=== PATIENT | male | born 1960 | race Caucasian/White ===

== ENCOUNTER 2018-02-23 21:13 | Emergency (ER) | payer BC, SELFPAY ==
--- NOTE | 2018-02-23 21:19 | DI.CT_ITS ---
SYMPTOMS/DIAGNOSIS: CONFUSION, DIZZY, ALTERED MENTAL STATUS, HYPOXIC CRANIAL CT: A noncontrast cranial CT was performed. The ventricular system is normal in appearance. There is no evidence of an intracranial mass lesion. There is no evidence of a subdural or epidural hematoma. No focal areas of decreased attenuation are seen. CONCLUSION: Normal noncontrast cranial CT. CT ANGIOGRAPHY, CHEST: CT angiography was performed with multi slice acquisition and multi planar and 3D reconstruction. CT angiography of the chest was performed with intravenous infusion of 100 cc of Omnipaque 350. Lungs are generally clear except for a small partially calcified left lower lobe nodule. The tracheobronchial tree appears intact. No pleural effusion. Minimal dependent atelectasis noted. No evidence of pulmonary embolic disease or thoracic aortic aneurysm or dissection. Images obtained through the upper abdomen show unremarkable appearance of visualized portions of the liver and spleen. CONCLUSION: No evidence of acute process. CT ANGIOGRAPHY, CERVICOCRANIAL: CT angiography was performed with multi slice acquisition and multi planar and 3D reconstruction. CT angiography of the neck and head was performed following CTA of the chest. No cervical mass or adenopathy seen. Common, internal and external carotid arteries are unremarkable in appearance bilaterally with no evidence of significant stenosis, aneurysm or dissection. Intracranial extent of the internal carotid arteries is unremarkable. No evidence of aneurysm, stenosis or dissection of middle or anterior cerebral arteries or major branches. No evidence of aneurysm, stenosis or dissection of vertebral, basilar or posterior cerebral arteries bilaterally. Tracheolaryngeal structures appear intact. CONCLUSION: Negative craniocervical CTA.
[2018-02-23] MEDS: Normal Saline 1,000 ML 1000 ML IV ×2 (21:32→23:03)
[2018-02-23 21:33] LABS: Abs Immature Grans 0.01 k/cumm (0.0-0.09); HCT 38.7 % (40.0-50.0); HGB 13.7 g/dL (13.5-17.5); Mean Corp. HGB Concentration 35.4 g/dL (32.0-36.0); Mean Corpuscular Hemoglobin 31.6 pg (27.0-33.0); Mean Corpuscular Volume 89.4 fL (80-95); Mean Platelet Volume 9.5 fL (8.0-11.0); Platelet Count 222 x1000/uL (130-400); RBC 4.33 m/cumm (4.50-6.00); RBC Distribution Width 11.9 % (11.8-14.1); White Blood Cell Count 9.53 k/cumm (4.4-10.8)
--- NOTE | 2018-02-23 21:33 | NUR.NOTE ---
states that approximately 1999 pt stated that he lost all energy and that his legs tingled and was short of breath at which point pt called 911. pt has consumed 5-7 whisky drinks. pt consumes whisky on a daily basis. states that symptoms have gradually progressed since onset
[2018-02-23 21:34] LABS: BE (Venous) -2.1 mmol/L (-3-3); HCO3 (Venous) 24 mmol/L (22-28); O2 Sat (Venous) 91 % (70-80); TCO2 (Venous) 21 mmol/L (22-29); pCO2 (Venous) 43 mm/Hg (34-47); pH (Venous) 7.35 (7.32-7.43); pO2 (Venous) 64 mm/Hg (28-44)
[2018-02-23 21:37] VITALS: BP 108/84; PULSE 88; RESP 15; TEMP 36.6; O2SAT 95
[2018-02-23 21:46] LABS: Ammonia 24 umol/L (11-32)
[2018-02-23 22:07] LABS: Absolute Lymphocyte Count 5.34 k/cumm (1.2-3.4); Absolute Monocyte Count 0.57 k/cumm (0.11-0.7); Absolute Neutrophil Count 3.53 k/cumm (1.2-6.7); Atypical Lymphocytes % 7; Diff Comment Manual Differential; RBC Morphology Normal
[2018-02-23 22:10] LABS: ALT 35 U/L (12-78); AST 16 U/L (15-37); Albumin 3.6 g/dL (3.4-5.0); Alkaline Phosphatase 35 U/L (46-116); Anion Gap 11.8 mmol/L (3-11); BUN 17 mg/dL (7-18); Bilirubin, Total 0.4 mg/dL (0.2-1.0); CO2 24.2 mmol/L (21.0-32.0); CREATININE 1.12 mg/dL (0.70-1.30); Calcium 8.2 mg/dL (8.5-10.1); Chloride 98 mmol/L (98-107); ETHANOL BLOOD 38.5 mg/dL (<3); Glucose 241 mg/dL (70-100); Sodium 134 mmol/L (136-145)
[2018-02-23 22:11] LABS: Troponin I < 0.02 ng/mL (0.00-0.06)
--- NOTE | 2018-02-23 22:30 | W.ED.GENAD ---
Discharge Plan Disposition Patient Disposition: HOME Condition: Good Discharge Details Chief Complaint: Dizzy/Sync Clinical Impression: Fatigue, Acute hypokalemia, Alcohol intoxication Reason For Visit: DONNA Primary Care Provider: Duc Forrest ED Provider: Claudio Bernstein Home Meds and New Rx's Prescriptions: No Action gemfibrozil 600 MG tablet 600 mg PO DAILY Qty: 90 RF: 4 lisinopril-hydrochlorothiazide 1 EACH tablet 1 ea PO QAM Qty: 90 RF: 4 Discharge Instructions Instructions: Hypokalemia (ED), Fatigue (ED) Additional Instructions: Please eat a diet heavy in bananas. If you notice any worsening of your symptoms, or any new symptoms such as vomiting, diarrhea, fever, chills, shortness of breath, chest pain, numbness, weakness, or fainting , please return immediately to the emergency department for reevaluation. Please follow up with your primary care provider as soon as possible for reassessment and reevaluation. As always, it was a pleasure participating in your medical care today. Referrals: Duc Forrest, [Primary Care Provider] - Medical Decision Making This is a 57-year-old male who presents for subjective dizziness, subjective tingling throughout, mild headache and mild shortness of breath. Patient is slightly poor historian. States that he drank 5-6 whiskeys earlier this evening, and then felt notably tired and had to lay down after this. Per family this is atypical for him. His dizziness and shortness of breath worsen, 9 1 was called and he was brought to the ER for further evaluation. Currently he does appear notably fatigued however he responds to all questions and follows all commands without difficulty. He demonstrates no focal neurologic deficits. He denies any significant chest pain, his neurologic exam demonstrates an NIH stroke scale of 0. He shows no nuchal rigidity suggestive of meningitis or encephalitis. The patient does demonstrate mild hypoxemia for his vital signs, but he also shows some episodes of apnea. Lung sounds demonstrate no significant abnormalities I can appreciate. Because of the patient being a poor historian, we will get a CT scan of his chest, evaluate his head and neck for any type of stroke, rehydrate and reevaluate. Patient's alcohol is actually slightly elevated and not extremely elevated at 38.5, so severe intoxication is unlikely. Family history and personal history from the patient deny any other ingested substances like antifreeze, or rubbing alcohol. The patient's pH is normal, and he has no anion gap. I doubt toxic alcohol. We are unable to perform osmolality testing here, or order toxic alcohols. Patient's potassium is low at 3.0. But the remainder of his labs are relatively benign. Troponin is negative. EKG is benign. 12:44 AM Patient's laboratory workup demonstrates no significant leukocytosis, no bandemia, electrolytes demonstrate a low potassium, but no other significant severe abnormalities. Calcium is slightly low at 8.2. Urine drug screen is negative for anything except for cannabis. After rehydration and potassium replacement the patient is feeling much better. The extensive CT workup of his head neck and chest are all negative for any acute process except for mild atelectasis. Patient is feeling much better, dizziness is nearly resolved. We did get him up and ambulate him around the emergency department and he showed no signs of tachycardia, hypoxemia, or ataxia. With notable improvement in both his clinical symptomatology, and a relatively benign workup we feel that the patient is stable. From a mental status perspective the patient no longer appears sleepy, he is extremely conversant, and shows no signs of obtundation, lethargy, or confusion. I feel the symptoms may have been a combination of too much alcohol use, potential contaminant cannabis use, with fatigue and mild dehydration. With a notable clinical improvement, a relatively benign workup, and repletion of his potassium I feel he can be safely discharged home. We discussed red flags which to return the patient understands. I have extensively reviewed the treatment plan and discharge instructions with the patient and their family. I have addressed all patient concerns at this time. The patient and family was made aware of what symptoms to monitor for that would warrant a return to the emergency department. Discussed the plan with the patient and family, they demonstrate verbal understanding and agreement with our assessment and plan at this time. EKG 21: 46 Rate 86, sinus rhythm, intervals normal, no significant ST elevation or depression, no Q waves, no T wave inversions. Mild artifact in V4 and V5. Findings: Pulmonary arteries: Unremarkable. No obvious pulmonary emboli. Aorta: Unremarkable. No aortic aneurysm. No aortic dissection. Lungs: Small amount of dependent atelectasis. Pleural space: Unremarkable. No pneumothorax. No pleural effusion. Heart: Unremarkable. No pericardial effusion. No obvious heart strain. Lymph nodes: Unremarkable. No enlarged lymph nodes. Bones/joints: Unremarkable. No acute fracture. Soft tissues: Unremarkable. Impression: Small amount of dependent atelectasis. Findings: Brain: Typical for age. No hemorrhage. No evidence of acute infarct. No mass. Ventricles: No ventriculomegaly. Bones/joints: Unremarkable. Sinuses: No sinus fluid. Mastoid air cells: Unremarkable. Soft tissues: Unremarkable. Impression: No acute intracranial abnormality. Dictated and Authenticated by: Bravo Arnold MD. FINDINGS: Right internal carotid artery: Unremarkable. Intracranial segment is patent with no significant stenosis. No aneurysm. Right anterior cerebral artery: Unremarkable. No occlusion or significant stenosis. No aneurysm. Right middle cerebral artery: Unremarkable. No occlusion or significant stenosis. No aneurysm. Right posterior cerebral artery: Unremarkable. No occlusion or significant stenosis. No aneurysm. Right vertebral artery: Unremarkable. No occlusion or significant stenosis. No aneurysm. Left internal carotid artery: Unremarkable. Intracranial segment is patent with no significant stenosis. No aneurysm. Left anterior cerebral artery: Unremarkable. No occlusion or significant stenosis. No aneurysm. Left middle cerebral artery: Unremarkable. No occlusion or significant stenosis. No aneurysm. Left posterior cerebral artery: Unremarkable. No occlusion or significant stenosis. No aneurysm. Left vertebral artery: Unremarkable. No occlusion or significant stenosis. No aneurysm. Basilar artery: Unremarkable. No occlusion or significant stenosis. No aneurysm. IMPRESSION: No acute findings. EXAM: CT Angiography Neck With Contrast COMPARISON: CT Private^HEAD ROUTINE (Adult) 02/23/2018 10:03 PM FINDINGS: VASCULATURE: Right common carotid artery: Unremarkable. No significant stenosis. No dissection or occlusion. Right internal carotid artery: Very tortuous. Extracranial segment is patent with no significant stenosis. No dissection or occlusion. Right external carotid artery: No occlusion or significant stenosis. Right vertebral artery: Unremarkable. No significant stenosis. No dissection or occlusion. Left common carotid artery: Unremarkable. No significant stenosis. No dissection or occlusion. Left internal carotid artery: Very tortuous. Extracranial segment is patent with no significant stenosis. No dissection or occlusion. Left external carotid artery: No occlusion or significant stenosis. Left vertebral artery: Unremarkable. No significant stenosis. No dissection or occlusion. NECK: Bones/joints: Unremarkable. Soft tissues: No significant soft tissue swelling. IMPRESSION: No acute findings. No evidence of stenosis. COMMENT: Reference per NASCET criteria for degree of stenosis: Mild: <50% stenosis. Moderate: 50-69% stenosis. Severe: 70-94% stenosis. Near occlusion: 95-99% stenosis. Dictated and Authenticated by: Bravo Arnold MD. HPI General Date/Time Provider Initiated Documentation: 02/23/18 21:18. HPI Narrative: This is a 57-year-old male with past medical history of hypertension, high cholesterol, and chronic regular alcoholism who presents today for evaluation of dizziness, subjective systemic tingling, shortness of breath and fatigue. Family states that patient regularly drinks 2-3 beers per day, however tonight while he was at a [employer] in addition to his regular alcohol consumption he drinks 5-6 whiskeys. The patient and family deny that he drank or took any other illicit substance. After drinking the additional whiskey the patient began feeling slightly dizzy, lightheaded, developed a mild headache, and had some mild shortness of breath as well. He denies having symptoms like this in the past. Family is at bedside states that he never gets like this when he regularly drinks alcohol. They feel that his symptoms are definitely not his norm. Patient denies any modifying or relieving factors. He denies any other associated symptoms of weakness, vision changes, chest pain, arm pain, neck pain or shoulder pain. He denies any falls or traumas. Denies any other complaints at this time. No recent surgeries. No pertinent family history. Related Data Home Medications Medication Instructions Recorded Confirmed gemfibrozil 600 mg PO DAILY #90 tab 09/09/17 lisinopril-hydrochlorothiazide 1 ea PO QAM #90 tab 09/09/17 Previous Rx's Medication Instructions Recorded gemfibrozil 600 mg PO DAILY #90 tab 09/09/17 lisinopril-hydrochlorothiazide 1 ea PO QAM #90 tab 09/09/17 Allergies Allergy/AdvReac Type Severity Reaction Status Date / Time No Known Drug Allergies Allergy Unverified 09/10/17 08:34 General Stated Complaint: Dizzy/Sync BAILEY: 3 Review of Systems Review of Systems All systems reviewed & are unremarkable except as noted in HPI and below PFSH Surgical History Appendectomy Colonoscopy - MAC Repair of inguinal hernia Family History Mother No problems noted. Father No problems noted. Sister No problems noted. Son No problems noted. Social History Smoking/Tobacco Use Status: Never Exam Narrative Exam Narrative: 1.Const: Well-nourished, Well-developed, appearing stated age 2.Eyes: PERRL, no conjunctival injection, and symmetrical lids. Pupils are slightly sluggish but otherwise dilated. Patient demonstrates good movement of cervical neck. There is no nuchal rigidity, no nuchal tenderness. Patient is able to flex the neck without any difficulty or significant pain. Negative Kernig's and Brudzinski sign. 3.ENT: Atraumatic external nose and ears. Moist MM. Neck: Symmetric, trachea midline, No thyromegaly. 4.CVS: +S1/S2, No murmurs or gallops. Peripheral pulses 2+ and equal in all extremities. Brisk capillary refill in all extremities. 5.RESP: Unlabored respiratory effort. Clear to auscultation bilaterally. No wheezes rales or rhonchi 6.GI: Soft, Nontender/Nondistended, No hepatosplenomegaly. No guarding or rebound. 7.MSK: Normocephalic/Atraumatic, Extremities w/o deformity or ttp No cyanosis or clubbing, Normal movement of all extremities 8.Skin: Warm, Dry. No rashes or lesions. 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 Sensation grossly intact, no focal neurologic deficits. Cerebellar function testing is normal. The patient demonstrates a normal hints exam with no findings concerning for a central event. No vertical nystagmus. The head impulse test is negative for any significant central abnormality. Normal test of skew. No suggestion of a central cerebellar event. CN 2-12 tested and intact, patient is able to hold bilateral arms up for 5 seconds and there is no pronator drift, patient also holds legs up for 10 seconds bilaterally without any drop, sensation intact to light touch in hands and feet bilaterally. Cerebellar exam normal as tested by [id number], [id number], rapid alternating movements, fine finger movements. Visual montelongo intact peripherally. Normal speech pattern and verbal understanding. NIH stroke score of 0. Patient does appear notably fatigued, however he responds to all commands quickly without difficulty. He shows no neurologic deficits. 10.Psych: (AAO) x3. Decreased energy, but no confusion. Course Vital Signs Temperature 36.6 C 02/23/18 21:37 Pulse 88 02/23/18 21:37 Respiratory Rate 15 02/23/18 21:37 Blood Pressure 108/84 02/23/18 21:37 Pulse Oximetry 95 02/23/18 21:37 Temperature 36.6 C 02/23/18 21:37 Temperature Source Skin 02/23/18 21:37 Pulse 88 02/23/18 21:37 Respiratory Rate 15 02/23/18 21:37 Blood Pressure 108/84 02/23/18 21:37 Blood Pressure Position Supine 02/23/18 21:37 Pulse Oximetry 95 02/23/18 21:37 Oxygen Delivery Method Nasal Cannula 02/23/18 21:37 Oxygen Flow Rate 5 02/23/18 21:37 Pain Level 0 02/23/18 21:37 Comment 02/23/18 21:37 Lab/Test Results Lab/Test Results: Laboratory Tests Range/Units 02/23/18 02/23/18 02/23/18 21:19 21:19 21:19 WBC (4.4-10.8) k/cumm RBC (4.50-6.00) m/cumm Hgb (13.5-17.5) g/dL Hct (40.0-50.0) % MCV (80-95) fL MCH (27.0-33.0) pg MCHC (32.0-36.0) g/dL RDW (11.8-14.1) % Plt Count (130-400) x1000/uL MPV (8.0-11.0) fL Immature Gran % Neutrophils % Lymphocytes % Monocytes % Eosinophils % Basophils % Absolute Neutrophils (1.2-6.7) k/cumm Band Neutrophils % Absolute Lymphocytes (1.2-3.4) k/cumm Absolute Monocytes (0.11-0.7) k/cumm Absolute Eosinophils (0.0-0.7) k/cumm Absolute Basophils (0.0-0.2) k/cumm Differential Comment Atypical Lymphocytes RBC Morphology VBG pH (7.32-7.43) 7.35 VBG pCO2 (34-47) mm/Hg 43 VBG pO2 (28-44) mm/Hg 64 H VBG HCO3 (22-28) mmol/L 24 VBG Total CO2 (22-29) mmol/L 21 L VBG O2 Saturation (70-80) % 91 H VBG Base Excess (-3-3) mmol/L -2.1 Sodium (136-145) mmol/L 134 L Potassium (3.5-5.1) mmol/L 3.0 L Chloride (98-107) mmol/L 98 Carbon Dioxide (21.0-32.0) mmol/L 24.2 Anion Gap (3-11) mmol/L 11.8 H BUN (7-18) mg/dL 17 Creatinine (0.70-1.30) mg/dL 1.12 Estimated GFR/1.73 m2 (mL/min/1.73m2) >= 60.00 Glucose (70-100) mg/dL 241 H Calcium (8.5-10.1) mg/dL 8.2 L Total Bilirubin (0.2-1.0) mg/dL 0.4 AST (15-37) U/L 16 ALT (12-78) U/L 35 Alkaline Phosphatase (46-116) U/L 35 L Ammonia (11-32) umol/L 24 Troponin I (0.00-0.06) ng/mL < 0.02 Total Protein (6.4-8.2) g/dL 7.0 Albumin (3.4-5.0) g/dL 3.6 Ethyl Alcohol (<3) mg/dL 38.5 Range/Units 02/23/18 21:21 WBC (4.4-10.8) k/cumm 9.53 RBC (4.50-6.00) m/cumm 4.33 L Hgb (13.5-17.5) g/dL 13.7 Hct (40.0-50.0) % 38.7 L MCV (80-95) fL 89.4 MCH (27.0-33.0) pg 31.6 MCHC (32.0-36.0) g/dL 35.4 RDW (11.8-14.1) % 11.9 Plt Count (130-400) x1000/uL 222 MPV (8.0-11.0) fL 9.5 Immature Gran % 0.0 Neutrophils % 37.0 Lymphocytes % 49.0 Monocytes % 6.0 Eosinophils % 1.0 Basophils % 0.0 Absolute Neutrophils (1.2-6.7) k/cumm 3.53 Band Neutrophils % 0.0 Absolute Lymphocytes (1.2-3.4) k/cumm 5.34 H Absolute Monocytes (0.11-0.7) k/cumm 0.57 Absolute Eosinophils (0.0-0.7) k/cumm 0.10 Absolute Basophils (0.0-0.2) k/cumm 0.00 Differential Comment Manual differential Atypical Lymphocytes 7 RBC Morphology Normal VBG pH (7.32-7.43) VBG pCO2 (34-47) mm/Hg VBG pO2 (28-44) mm/Hg VBG HCO3 (22-28) mmol/L VBG Total CO2 (22-29) mmol/L VBG O2 Saturation (70-80) % VBG Base Excess (-3-3) mmol/L Sodium (136-145) mmol/L Potassium (3.5-5.1) mmol/L Chloride (98-107) mmol/L Carbon Dioxide (21.0-32.0) mmol/L Anion Gap (3-11) mmol/L BUN (7-18) mg/dL Creatinine (0.70-1.30) mg/dL Estimated GFR/1.73 m2 (mL/min/1.73m2) Glucose (70-100) mg/dL Calcium (8.5-10.1) mg/dL Total Bilirubin (0.2-1.0) mg/dL AST (15-37) U/L ALT (12-78) U/L Alkaline Phosphatase (46-116) U/L Ammonia (11-32) umol/L Troponin I (0.00-0.06) ng/mL Total Protein (6.4-8.2) g/dL Albumin (3.4-5.0) g/dL Ethyl Alcohol (<3) mg/dL
[2018-02-23 22:31] VITALS: RESP 15
[2018-02-23] MEDS: Omnipaque 350 MG/ML 100 ML BTL IJ ×2 (22:45→22:46)
--- NOTE | 2018-02-23 22:54 | DI.VRAD_ITS ---
EXAM: CT Angiography Chest With Contrast EXAM DATE/TIME: 02/23/2018 9:54 PM CLINICAL HISTORY: 57 years old, male; Signs and symptoms; Other: Hypoxic, altered TECHNIQUE: Axial computed tomographic angiography images of the chest with intravenous contrast using CT angiography protocol. All CT scans at this facility use at least one of these dose optimization techniques: automated exposure control; mA and/or kV adjustment per patient size (includes targeted exams where dose is matched to clinical indication); or iterative reconstruction. Coronal and sagittal reformatted images were created and reviewed. MIP reconstructed images were created and reviewed. CONTRAST: 100 ml of Omnipaque 350 administered intravenously. COMPARISON: No relevant prior studies available. FINDINGS: Pulmonary arteries: Unremarkable. No obvious pulmonary emboli. Aorta: Unremarkable. No aortic aneurysm. No aortic dissection. Lungs: Small amount of dependent atelectasis. Pleural space: Unremarkable. No pneumothorax. No pleural effusion. Heart: Unremarkable. No pericardial effusion. No obvious heart strain. Lymph nodes: Unremarkable. No enlarged lymph nodes. Bones/joints: Unremarkable. No acute fracture. Soft tissues: Unremarkable. IMPRESSION: Small amount of dependent atelectasis. Dictated and Authenticated by: Bravo Arnold MD. Ordering:AMOR Snyder MD
--- NOTE | 2018-02-23 22:57 | DI.VRAD_ITS ---
EXAM: CT Angiography Head With Contrast EXAM DATE/TIME: 02/23/2018 9:54 PM CLINICAL HISTORY: 57 years old, male; Signs and symptoms; Dizziness and giddiness and other: AMS TECHNIQUE: Axial computed tomographic angiography images of the head with intravenous contrast using CT angiography protocol. All CT scans at this facility use at least one of these dose optimization techniques: automated exposure control; mA and/or kV adjustment per patient size (includes targeted exams where dose is matched to clinical indication); or iterative reconstruction. MIP reconstructed images were created and reviewed. CONTRAST: 85 ml of Omnipaque 350 administered intravenously. COMPARISON: CT Private^HEAD ROUTINE (Adult) 02/23/2018 10:03 PM FINDINGS: Right internal carotid artery: Unremarkable. Intracranial segment is patent with no significant stenosis. No aneurysm. Right anterior cerebral artery: Unremarkable. No occlusion or significant stenosis. No aneurysm. Right middle cerebral artery: Unremarkable. No occlusion or significant stenosis. No aneurysm. Right posterior cerebral artery: Unremarkable. No occlusion or significant stenosis. No aneurysm. Right vertebral artery: Unremarkable. No occlusion or significant stenosis. No aneurysm. Left internal carotid artery: Unremarkable. Intracranial segment is patent with no significant stenosis. No aneurysm. Left anterior cerebral artery: Unremarkable. No occlusion or significant stenosis. No aneurysm. Left middle cerebral artery: Unremarkable. No occlusion or significant stenosis. No aneurysm. Left posterior cerebral artery: Unremarkable. No occlusion or significant stenosis. No aneurysm. Left vertebral artery: Unremarkable. No occlusion or significant stenosis. No aneurysm. Basilar artery: Unremarkable. No occlusion or significant stenosis. No aneurysm. IMPRESSION: No acute findings. EXAM: CT Angiography Neck With Contrast EXAM DATE/TIME: 02/23/2018 9:54 PM CLINICAL HISTORY: 57 years old, male; Signs and symptoms; Dizziness and giddiness and other: AMS TECHNIQUE: Axial computed tomographic angiography images of the neck with intravenous contrast using CT angiography protocol. All CT scans at this facility use at least one of these dose optimization techniques: automated exposure control; mA and/or kV adjustment per patient size (includes targeted exams where dose is matched to clinical indication); or iterative reconstruction. MIP reconstructed images were created and reviewed. CONTRAST: 85 ml of Omnipaque 350 administered intravenously. COMPARISON: CT Private^HEAD ROUTINE (Adult) 02/23/2018 10:03 PM FINDINGS: VASCULATURE: Right common carotid artery: Unremarkable. No significant stenosis. No dissection or occlusion. Right internal carotid artery: Very tortuous. Extracranial segment is patent with no significant stenosis. No dissection or occlusion. Right external carotid artery: No occlusion or significant stenosis. Right vertebral artery: Unremarkable. No significant stenosis. No dissection or occlusion. Left common carotid artery: Unremarkable. No significant stenosis. No dissection or occlusion. Left internal carotid artery: Very tortuous. Extracranial segment is patent with no significant stenosis. No dissection or occlusion. Left external carotid artery: No occlusion or significant stenosis. Left vertebral artery: Unremarkable. No significant stenosis. No dissection or occlusion. NECK: Bones/joints: Unremarkable. Soft tissues: No significant soft tissue swelling. IMPRESSION: No acute findings. No evidence of stenosis. COMMENT: Reference per NASCET criteria for degree of stenosis: Mild: <50% stenosis. Moderate: 50-69% stenosis. Severe: 70-94% stenosis. Near occlusion: 95-99% stenosis. Dictated and Authenticated by: Bravo Arnold MD. Ordering:AMOR Snyder MD
--- NOTE | 2018-02-23 22:59 | DI.VRAD_ITS ---
EXAM: CT Head Without Contrast EXAM DATE/TIME: 02/23/2018 9:22 PM CLINICAL HISTORY: 57 years old, male; Signs and symptoms; Altered mental status/memory loss and dizziness; Confusion or disorientation TECHNIQUE: Axial computed tomography images of the head/brain without contrast. All CT scans at this facility use at least one of these dose optimization techniques: automated exposure control; mA and/or kV adjustment per patient size (includes targeted exams where dose is matched to clinical indication); or iterative reconstruction. Coronal and sagittal reformatted images were created and reviewed. COMPARISON: No relevant prior studies available. FINDINGS: Brain: Typical for age. No hemorrhage. No evidence of acute infarct. No mass. Ventricles: No ventriculomegaly. Bones/joints: Unremarkable. Sinuses: No sinus fluid. Mastoid air cells: Unremarkable. Soft tissues: Unremarkable. IMPRESSION: No acute intracranial abnormality. Dictated and Authenticated by: Bravo Arnold MD. Ordering:AMOR Snyder MD
[2018-02-23] MEDS: POTASSIUM CHLORIDE 20 MEQ/100 ML BAG 50 MEQ IVPB (23:00)
[2018-02-23] MEDS: Potassium Chloride 20 MEQ TABCR 40 MEQ PO (23:01)
[2018-02-23 23:32] LABS: *AMPHETAMINES SCREEN URINE Negative (Negative); *BARBITURATES SCREEN URINE Negative (Negative); *BENZODIAZEPINES SCREEN URINE Negative (Negative); Cannabinoids THC POSITIVE (Negative); Cocaine Screen,Urine Negative (Negative); METHADONE URINE SCREEN Negative (Negative); OPIATES URINE SCREEN Negative (Negative)
[2018-02-23 23:33] LABS: Tricyclic Antidepressants Negative (Negative)
--- NOTE | 2018-02-24 00:14 | NUR.NOTE ---
pt road test. pass pt was able to ambulate without risk of falling. pt o2 remained above resting o2 during duration of test
[2018-02-24 00:30] VITALS: BP 108/84; PULSE 88; RESP 15; TEMP 36.6; O2SAT 95
== END 2018-02-24 00:54 | disposition home or self-care (01) ==
PROVIDERS: Emergency Provider Student in an Organized Health Care Education/Training Program; PCP Emergency Medicine
DX: R53.83 Other fatigue (principal); E87.6 Hypokalemia; R09.02 Hypoxemia; R06.81 Apnea, not elsewhere classified; F10.120 Alcohol abuse with intoxication, uncomplicated; R20.2 Paresthesia of skin; I10 Essential (primary) hypertension
CPT/HCPCS: 36415; 70496; 70498; 71275; 80053; 80307; 82805; 93005; 96361; 96365; 99285; 70450; 80320; 82140; 84484; 85025; 93010; J3480; J3490

== ENCOUNTER 2018-03-31 07:56 | Outpatient (CLI) | payer BC, SELFPAY ==
[2018-03-31 11:34] LABS: Anion Gap 8.1 mmol/L (3-11); BUN 16 mg/dL (7-18); CO2 29.9 mmol/L (21.0-32.0); CREATININE 1.03 mg/dL (0.70-1.30); Chloride 100 mmol/L (98-107); Glucose 129 mg/dL (70-100); Potassium 4.2 mmol/L (3.5-5.1); Sodium 138 mmol/L (136-145)
[2018-03-31 11:39] LABS: Hemoglobin A1C 6.6 % (4.5-6.2)
== END 2018-03-31 08:16 ==
PROVIDERS: PCP Emergency Medicine; Visit Provider Emergency Medicine
DX: E11.9 Type 2 diabetes mellitus without complications (principal); I10 Essential (primary) hypertension; E66.9 Obesity, unspecified
CPT/HCPCS: 36415; 80048; 83036

== ENCOUNTER 2018-10-13 08:05 | Outpatient (CLI) | payer BC, SELFPAY ==
[2018-10-13 12:31] LABS: Hemoglobin A1C 6.2 % (4.5-6.2)
[2018-10-13 12:45] LABS: Anion Gap 12.7 mmol/L (3-11); BUN 18 mg/dL (7-18); CO2 23.3 mmol/L (21.0-32.0); CREATININE 1.04 mg/dL (0.70-1.30); Calcium 9.1 mg/dL (8.5-10.1); Calculated LDL 122 mg/dL; Chloride 100 mmol/L (98-107); Cholesterol 209 mg/dL (50-200); Glucose 122 mg/dL (70-100); HDL Cholesterol 45 mg/dL (40-60); Sodium 136 mmol/L (136-145); Triglyceride 213 mg/dL (30-150)
[2018-10-14 09:48] LABS: PSA, Screening 1.4 ng/ml (0-3.5)
== END 2018-10-13 08:25 ==
PROVIDERS: PCP Emergency Medicine; Visit Provider Emergency Medicine
DX: E66.9 Obesity, unspecified (principal); E11.9 Type 2 diabetes mellitus without complications; Z12.5 Encounter for screening for malignant neoplasm of prostate
CPT/HCPCS: 36415; 80048; 80061; 83721; 84153; 83036

== ENCOUNTER 2019-01-08 11:27 | Day surgery (SDC) | payer BC, SELFPAY ==
[2019-01-08 11:48] VITALS: BP 141/90; PULSE 78; RESP 17; TEMP 36.5; O2SAT 96
--- NOTE | 2019-01-08 12:01 | W.PM.DSUDISC ---
Discharge Plan Disposition Patient Disposition: HOME Condition: Good Discharge Details Reason For Visit: Colonoscopy Attending Provider: Marcela Yen Primary Care Provider: Duc Forrest Home Meds and New Rx's Prescriptions: Continued gemfibrozil 600 mg tablet 600 mg PO DAILY Qty: 90 RF: 4 lisinopril-hydrochlorothiazide 20-25 mg tablet 1 tab PO QAM Qty: 90 RF: 4 Discharge Instructions Additional Instructions: Findings: One small polyp was removed. My office will contact you with biopsy results. Diverticulosis was present. Follow up: Plan for a follow up colonoscopy in 5 years. Please call if you develop: fevers >101.5 Nausea or Vomiting Abdominal pain that is not transient DAY SURGERY UNIT POST COLONOSCOPY INSTRUCTIONS 1. Because there will be medication in your system for the next 24 hours, you may feel a little sleepy. Your coordination will be affected. Therefore: a. Do not drive or operate dangerous equipment for 24 hours. b. Do not drink alcohol beverages for 24 hours (not even beer). c. Plan to go home and rest for the day. 2. Generally there are no restrictions on your activity after a day or so has gone by, but you may feel a bit fatigued for a few days. 3 After you arrive home you may have a light meal and return to a normal diet as you can tolerate it without feeling sick to your stomach. 4. After surgery, you may feel pain or discomfort. This should be only transient, but if it persists please contact your doctor. 5. If there are any questions regarding the findings of your procedure, please feel free to contact your doctor. 6. If you are unable to contact your doctor with a problem, contact the hospital at [phone]. 7. Continue all your regular medications unless directed otherwise. I understand the above instructions and have no questions. Signature of Patient or Responsible Adult Escort Date/Time Name of Responsible Adult Escort Signature of Nurse Date/Time Activity:: Activity as Tolerated Diet:: As Tolerated Discharge Orders Discharge Orders: Discharge Order (Routine); Ordered 01/08/19 Ordered By: Marcela Yen DS: Diagnosis Discharge Diagnosis (1) Colon polyp: Status: Acute (2) Diverticulosis: Status: Acute
[2019-01-08] MEDS: Lactated Ringers 1,000 ML 80 ML IV (12:14)
--- NOTE | 2019-01-08 13:11 | BOWEL_PTH ---
PATIENT: Christiano Mosquera LOC: [facility] U#:[id number] AGE/SX: 58/M ROOM: RE01/08/[address]: Marcela Yen MD : 1960 BED: DIS: 01/08/2019 SPEC #: [id number] RECD: 01/08/19 17:18 STATUS: AISSATOU REQ #: [id number] PAO: 01/08/19 13:[address]: Marcela Yen DEPT: Surgical Specimen RECD BY: Carmen Ackerman ENTERED: 01/08/19 17:19 SP TYPE: Bowel OTHR DR: Duc Forrest DO Tissues: 1 - BIOPSY BOWEL Procedures: GROSS AND MICRO LEVEL 4 Comments: [id number]
[2019-01-08 13:14] VITALS: BP 118/75; PULSE 77; RESP 16; TEMP 36.4; O2SAT 100
[2019-01-08 13:49] VITALS: BP 121/79; PULSE 75; RESP 16; TEMP 36.2; O2SAT 98
--- NOTE | 2019-01-08 15:10 | SUR.PHASEII ---
Please disregard vitals documented for 1314 they were entered in error. The correct vitals have been entered for 1349. jocy vinson.
--- NOTE | 2019-01-08 16:36 | COLE_ITS ---
DATE OF PROCEDURE: January 08, 2019 PREOPERATIVE DIAGNOSIS: Screening. POSTOPERATIVE DIAGNOSIS: 1. Descending colon polyp. 2. Diverticulosis. PROCEDURE: Colonoscopy with polypectomy. SURGEON: Marcela Yen M.D. ANESTHESIA: General. INDICATIONS: This is a 58-year-old man who presents for a routine colon evaluation. His last proced ure ten years ago was normal. He has no symptoms or family history of colon cancer. PROCEDURE: He was placed in the left Bailey position. Propofol was titrated to sedation. Digital rec jas examination revealed no abnormalities. The scope was advanced to the cecum without difficulty. The ileocecal valve and appendiceal orifice were clearly identified. His prep was good. The scope w as slowly withdrawn with no abnormalities seen within the ascending or transverse colon. In the mid descending colon there was a < 1 cm polyp that was sessile in nature. This was removed with snare po lypectomy using cautery and retrieved for pathology. A hemostatic clip was applied due to the somewh at broad base. He was noted to have mild to moderate sigmoid diverticulosis. The rectum was normal, including on retroflex view. He tolerated the procedure well and was stable to recovery. If the polyp is adenomatous, he will need a follow-up colonoscopy again in five years. cc: Duc Forrest D.O.
== END 2019-01-08 14:13 | disposition home or self-care (01) ==
PROVIDERS: PCP Emergency Medicine; Visit Provider Surgery
PROC: 0DJD8ZZ Inspection of Lower Intestinal Tract, Via Natural or Artificial Opening Endoscopic (ICD-10-PCS; CPT 45378; principal; 2019-01-08 12:45)
DX: Z12.11 Encounter for screening for malignant neoplasm of colon (principal); D12.4 Benign neoplasm of descending colon; K57.30 Diverticulosis of large intestine without perforation or abscess without bleeding; I10 Essential (primary) hypertension
CPT/HCPCS: 45385; 88305

== ENCOUNTER 2019-09-07 03:42 | Outpatient (CLI) | payer BC, SELFPAY ==
[2019-09-07 12:52] LABS: Anion Gap 11.9 mmol/L (3-11); BUN 16 mg/dL (7-18); CO2 23.1 mmol/L (21.0-32.0); CREATININE 0.92 mg/dL (0.70-1.30); Calcium 9.2 mg/dL (8.5-10.1); Calculated LDL 105 mg/dL (<100); Chloride 104 mmol/L (98-107); Cholesterol 186 mg/dL (<200); Glucose 120 mg/dL (74-106); HDL Cholesterol 39 mg/dL (40-60); Potassium 4.2 mmol/L (3.5-5.1); Sodium 139 mmol/L (136-145); Triglyceride 213 mg/dL (<150)
[2019-09-07 13:04] LABS: Hemoglobin A1C 6.2 % (3.8-5.6)
== END 2019-09-07 04:02 ==
PROVIDERS: PCP Emergency Medicine; Visit Provider Emergency Medicine
DX: E78.5 Hyperlipidemia, unspecified (principal); I10 Essential (primary) hypertension; E11.9 Type 2 diabetes mellitus without complications; E66.9 Obesity, unspecified
CPT/HCPCS: 36415; 80048; 80061; 83036

== ENCOUNTER 2021-09-13 02:27 | Outpatient (CLI) | payer BC, SELFPAY ==
[2021-09-13 12:23] LABS: HGB 14.5 g/dL (13.5-17.5); MCH 31.5 pg (27.0-33.0); MCHC 35.4 % (32.0-36.0); MCV 89 fL (80-95); MPV 9.8 fL (8.0-11.0); Platelet Count 251 10^3/uL (130-400); RDW 12.2 % (11.8-14.1); RDW-SD 39.6 fL; WBC 5.69 10^3/uL (4.4-10.8)
[2021-09-13 12:37] LABS: Hemoglobin A1C 6.9 % (<5.7)
[2021-09-13 12:41] LABS: ALT 36 U/L (16-63); AST 22 U/L (15-37); Albumin 3.8 g/dL (3.4-5.0); Alkaline Phosphatase 31 U/L (46-116); Anion Gap 9.5 mmol/L (3-11); BUN 19 mg/dL (7-18); Bilirubin, Total 0.6 mg/dL (0.2-1.0); CO2 25.5 mmol/L (21.0-32.0); Calcium 8.5 mg/dL (8.5-10.1); Calculated LDL 102 mg/dL (<100); Chloride 104 mmol/L (98-107); Cholesterol 193 mg/dL (<200); Glucose 137 mg/dL (74-106); HDL Cholesterol 40 mg/dL (40-60); Sodium 139 mmol/L (136-145); Total Protein 7.4 g/dL (6.4-8.2); Triglyceride 257 mg/dL (<150)
[2021-09-13 22:30] LABS: PSA, Screening 1.2 ng/mL (<=4.5)
[2021-09-14 09:41] LABS: Hepatitis C Ab w Rflx HCV PCR Negative (Negative)
[2021-09-14 10:07] LABS: HIV-1/2 Ag & Ab Screen Negative (Negative)
== END 2021-09-13 02:28 | disposition home or self-care (01) ==
PROVIDERS: Visit Provider Family Medicine
DX: E78.5 Hyperlipidemia, unspecified (principal); I10 Essential (primary) hypertension; R73.03 Prediabetes; Z11.4 Encounter for screening for human immunodeficiency virus [HIV]; Z11.59 Encounter for screening for other viral diseases; Z12.5 Encounter for screening for malignant neoplasm of prostate
CPT/HCPCS: 36415; 80053; 80061; 84153; 85027; 86803; 87389; 83036

== ENCOUNTER 2022-01-02 16:55 | Outpatient (REF) | payer BC, SELFPAY ==
[2022-01-02 13:57] LABS: COMMENT (LAB VIEW ONLY) 71.74 mg/dL; Microalb ug/mg Crea 13.8 ug/mg Cr
== END 2022-01-02 16:56 | disposition home or self-care (01) ==
LOC: LBN 16:55
PROVIDERS: PCP Family Medicine; Visit Provider Family Medicine
DX: E11.9 Type 2 diabetes mellitus without complications (principal)
CPT/HCPCS: 82043; 82570

== ENCOUNTER 2022-01-10 10:59 | Day surgery (SDC) | payer BC, OTHER, SELFPAY ==
[2022-01-10] VITALS (7 sets, daily range): BP systolic 104–140; BP diastolic 61–79; PULSE 71–80; RESP 16–27; TEMP 36.5; O2SAT 94–97; BMI 41.6
--- NOTE | 2022-01-10 11:46 | W.PM.HP.N ---
Date of service: 01/10/22 Time of Service: 11:46 Assessment and Plan Assessment and plan (1) Bilateral hydrocele: Status: Acute Assessment and plan: Only his left hydrocele is symptomatic, so we are not recommending any treatment to the right side. On his ultrasound, we know that the underlying testes appear normal. He is agreeable to a left hydrocelectomy. History of Present Illness History of Present Illness Chief Complaint: Bilateral hydroceles Narrative: Mr. Mosquera tells me that his scrotum has always been somewhat enlarged.? He noticed increased swelling and discomfort in the left hemiscrotum about 6 months ago after lifting something heavy.? He did not recall any specific blunt trauma at that time.? He did not notice any overlying skin changes such as redness, bruising or drainage.? He did notice that the increased swelling and discomfort seem to occur as he became more active at work.? Since the spring of the year, the left side has increased further in size and discomfort. He did have a previous inguinal hernia surgery about 20 years ago.? He believes the hernia was on his right side.? He has never had any type of scrotal surgery including vasectomy. He has no dysuria or gross hematuria.? He has no known history of UTIs or STDs. He has no known bleeding disorders or wound healing issues.? He has had no previous complications related to anesthesia. Review of Systems Narrative: No fevers or chills No vision change or dysphasia Hx Diabetes. No thyroid dysfunction No shortness of breath, cough or hemoptysis No chest pain or palpitations No nausea, vomiting, hepatitis, ulcers, jaundice No seizures, strokes or peripheral neuropathy No bleeding disorders or anemia No gout PFSH All Active Problems Obesity (Acute) Hypertension (Chronic) Hyperlipidemia (Acute) Colon polyp (Acute) 2019, tubular adenoma, due in 2023 Type 2 diabetes mellitus (Chronic) Bilateral hydrocele (Acute) Medical History COVID 12/19/21 Surgical History Colonoscopy - [facility] 01/19. Tubular adenoma. 03/10 History of appendectomy History of appendectomy Hx of hand surgery left, chainsaw trauma Status post unilateral inguinal hernia repair Family History Mother No problems noted. Father No problems noted. Sister No problems noted. Son No problems noted. 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 Do you feel safe at home: Yes (unable to assess privately) Do you feel safe in your relationship?: Yes Meds Allergies and Home Medications Allergies Allergy/AdvReac Type Severity Reaction Status Date / Time No Known Drug Allergies Allergy Verified 01/10/22 11:35 Home Medications Medication Instructions Recorded Confirmed Type gemfibrozil 600 mg tablet 600 mg PO DAILY #90 tabs 02/01/21 01/10/22 Rx hydrochlorothiazide 25 mg tablet 25 mg PO DAILY #90 tabs 11/21/21 01/10/22 Rx lisinopril 40 mg tablet 40 mg PO DAILY #90 tabs 11/21/21 01/10/22 Rx Exam Const General: cooperative Neck Neck: supple Resp Effort & Inspection: normal respiratory effort Auscultation: clear to auscultation bilaterally Cardio Rate: regular rate Rhythm: regular rhythm GI Inspection: obesity Palpation: soft and no masses Scrotum: hydrocele (left larger than right) Neuro General: patient alert, patient awake and patient oriented x3
--- NOTE | 2022-01-10 12:05 | W.ANESPRE ---
General Info Date of Service Date Performed: 01/10/22 Height: 5 ft 7.5 in Weight: 122.5 kg Body Mass Index (BMI): 41.6 Surgical Procedure: Operation Date: 01/10/22 13:10 Proposed Procedure Side Surgeon p Hydrocelectomy Left Momo Topete MD Actual Procedure Side Surgeon p Hydrocelectomy Left Momo Topete MD Pre-Op Diagnosis Post-Op Diagnosis Left hydrocele Left hydrocele Meds Allergies and Home Medications Allergies Allergy/AdvReac Type Severity Reaction Status Date / Time No Known Drug Allergies Allergy Verified 01/10/22 11:35 Home Medication Medication Instructions Recorded gemfibrozil 600 mg tablet 600 mg PO DAILY #90 tabs 02/01/21 hydrochlorothiazide 25 mg tablet 25 mg PO DAILY #90 tabs 11/21/21 lisinopril 40 mg tablet 40 mg PO DAILY #90 tabs 11/21/21 Current Visit Medications: Current Medications Generic Name Dose Route Start Last Admin Trade Name Freq PRN Reason Stop Dose Admin Cefazolin Sodium 3,000 mg/ 100 mls @ 200 mls/hr 01/10/22 06:00 Sodium Chloride IVPB 01/10/22 18:00 PREOP CHRIS Ringer's Solution 1,000 mls @ 80 mls/hr 01/10/22 06:00 IV 02/08/22 23:59 INFUSION CHRIS IV Miscellaneous Supplies 1 each 01/10/22 06:00 Iv Access IV 02/08/22 23:59 DIRECTED CHRIS Sodium Chloride 0 ml 01/10/22 06:00 Normal Saline Flush 10 Ml Syr IV 02/08/22 23:59 PRN PRN Sodium Chloride 0 ml 01/10/22 06:00 Normal Saline 10 Ml Vial IJ 02/08/22 23:59 DIRECTED PRN Sterile Water 0 ml 01/10/22 06:00 Water,Injection,Sterile 10 Ml Vial IJ 02/08/22 23:59 DIRECTED PRN PFSH Active Problems Active Problems: Problem Status Onset Code Obesity E66.9 Hypertension I10 Hyperlipidemia E78.5 Colon polyp K63.5 Type 2 diabetes mellitus E11.9 Bilateral hydrocele N43.3 Medical History Medical History COVID 12/19/21 Surgical History Surgical History Colonoscopy - [facility] 01/19. Tubular adenoma. 03/10 History of appendectomy History of appendectomy Hx of hand surgery left, chainsaw trauma Status post unilateral inguinal hernia repair Tobacco Smoking/Tobacco Use Status: Never Alcohol Alcohol Intake: current Alcohol intake frequency: a few times a week Alcohol type: beer and hard liquor Substance Use Substance use: Never Substance use type: does not use Vital Signs and Lab Results Vital Signs Most Recent Vital Signs in EMR: Most Recent Vital Signs Temp Pulse Resp BP Pulse Ox 36.5 C 80 16 140/71 97 01/10/22 11:38 01/10/22 11:38 01/10/22 11:38 01/10/22 11:38 01/10/22 11:38 Lab Results Blood Type / Crossmatch: No Data to Display Complete Blood Count: No Data to Display Complete Metabolic Panel: Hemoglobin A1c 6.9 % (4.5-5.7) H 01/02/22 08:08 Liver Function Panel: No Data to Display Coagulation Panel: No Data to Display Cardiac Panel: No Data to Display Arterial Blood Gas: No Data to Display Venous Blood Gas: No Data to Display Pancreas Panel: No Data to Display Thyroid Panel: No Data to Display Infectious Disease: No Data to Display Blood Cultures: No Data to Display Toxicology Panel: No Data to Display Anesthesia Assessment and Plan Anesthesia History Personal History: No History of Anesthesia Complications Family History: No Family History of Anesthesia Complications Exercise Tolerance Exercise Tolerance: Metabolic Equivalents>4 Pertinent Negatives Pertinent Negatives: No Symptoms of GERD, No Major Cardiovascular Symptoms or Complaints, No Major Pulmonary Symptoms or Complaints and No History of CVA/TIA Cardiac & Pulmonary Exam Cardiac Exam: Normal S1/S2 Heart Sounds Pulmonary Exam: Clear Bilateral Breath Sounds Cardiac and Pulmonary Comment:: COVID mid December, never had cough Implantable Cardiac Device Does patient have a Pacemaker or an ICD?: No Airway Exam Known Difficult Airway: No Mallampati Class: 2 Mouth Opening: Normal (> 3cm) Thyromental Distance: Greater than 3 cm Neck Range of Motion: Full ROM Neck Circumference: Thick Teeth Condition: Normal Dentition ASA Classification ASA Score: ASA 3 Emergency Case?: No NPO Status NPO Status: NPO Clears >2 hours, Solids >8 hours Anesthesia Plan Resuscitation Status: Full Code Anesthesia Technique: General Anesthesia Airway Planned: Endotracheal Tube Monitors Used: Standard Monitors
[2022-01-10] MEDS: Lactated Ringers 1,000 ML 80 ML IV (12:20)
[2022-01-10] MEDS: ceFAZolin 3,000 MG in Normal Saline 100 ML 200 MG IVPB (12:44)
[2022-01-10] MEDS: Bupivacaine 0.25% Pres-Free 30 ML VIAL (12:58)
--- NOTE | 2022-01-10 13:27 | ROE_ITS ---
Date of service: 01/10/22 Time of Service: 13:27 Operative Note Operative Note DATE OF PROCEDURE: 01/10/22 PRE-OP DIAGNOSIS: Left hydrocele POST-OP DIAGNOSIS: same PROCEDURE: left hydrocelectomy SURGEON: Momo Topete ANESTHESIA TYPE: General LMA/ETT Refer to Anesthesia Record ESTIMATED BLOOD LOSS: 20 PATHOLOGY: none sent COMPLICATIONS: None Patient was transported to: PACU Patient's condition: stable Implants: none Indications: This is a 61-year-old gentleman who has a history of bilateral hydroceles. The right side is asymptomatic at this time, but the left side has been increasing in size and becoming more uncomfortable. He has had scrotal ultrasound which showed normal underlying testes. He presents for left hydrocelectomy Findings: Left hydrocele with over 650 cc of fluid drained Procedure Description: Patient was brought to the operating room on 01/10/2022. He was given preoperative IV antibiotics. After successful induction of general anesthesia, he was placed in the supine p osition. His genitalia and scrotum were prepped and draped sterilely. A transverse left scrotal incision was made and extended down through the skin and dartos muscle. We then encountered a large hydrocele with in the tunica vaginalis. The testis was delivered through the incision and all of the surrounding connective tissue was dissected off the tunica vaginalis using sharp and blunt dissection. We then opened the tunica anteriorly and drained over 650 cc of yellow-tinged fluid. No hemorrhagic fluid was identified. The tunica vaginalis was then opened along the length of the hydrocele sac and the redundant tissue was excised. The remaining sac was everted behind the testis and reapproximated using running 3-0 chromic sutures. We left the sutures to help with hemostasis from the edge of the hydrocele sac. A cord block was then performed using quarter percent Marcaine without epinephrine. The testis was delivered back within the left hemiscrotum. The dartos muscle was closed over top of the testis using a running 3-0 chromic suture. The scrotal skin was closed with simple interrupted 3-0 chromic. Dermabond was then applied to the incision site. A fluff dressing was applied followed by a scrotal support. The patient tolerated this procedure well with no complications.
--- NOTE | 2022-01-10 13:27 | W.PM.DSUDISC ---
Date of service: 01/10/22 Time of Service: 13:27 Discharge Plan Disposition Patient Disposition: HOME Condition: Good Discharge Details Reason For Visit: hydrocelectomy Attending Provider: Momo Topete Primary Care Provider: Maria Isabel Gomez Home Meds and New Rx's Prescriptions: No Action lisinopril 40 mg tablet 40 mg PO DAILY Qty: 90 3RF hydrochlorothiazide 25 mg tablet 25 mg PO DAILY Qty: 90 3RF gemfibrozil 600 mg tablet 600 mg PO DAILY Qty: 90 4RF Discharge Instructions Additional Instructions: fluff dressing and scrotal support - in Am may gets dressings wet and remove them continue to wear supportive undergarments/scrotal support for next week followup appt in @ 1 to 2 weeks ice pack to scrotum while awake (bag of frozen peas works well) OK to shower starting tomorrow Activity:: no lifting over 10 pounds for 1 week Remove Dressings/Wound Care:: 24 hours Shower/Bathe:: 24 hours Diet:: As Tolerated Discharge Orders Discharge Orders: Discharge Order (Routine); Ordered 01/10/22 Ordered By: Momo Topete DS: Diagnosis Discharge Diagnosis (1) Bilateral hydrocele: Status: Acute
--- NOTE | 2022-01-10 13:39 | W.PM.DSUDISC ---
Date of service: 01/10/22 Time of Service: 13:42 Discharge Plan Disposition Patient Disposition: HOME Condition: Good Discharge Details Reason For Visit: hydrocelectomy Attending Provider: Momo Topete Primary Care Provider: Maria Isabel Gomez Home Meds and New Rx's Prescriptions: New oxycodone 5 mg capsule 5 - 10 mg PO Q6H PRN (Reason: pain) Qty: 30 0RF Rx Instructions: may take along with tylenol and NSAIDs No Action lisinopril 40 mg tablet 40 mg PO DAILY Qty: 90 3RF hydrochlorothiazide 25 mg tablet 25 mg PO DAILY Qty: 90 3RF gemfibrozil 600 mg tablet 600 mg PO DAILY Qty: 90 4RF Discharge Instructions Additional Instructions: fluff dressing and scrotal support - in Am may gets dressings wet and remove them continue to wear supportive undergarments/scrotal support for next week followup appt in @ 1 to 2 weeks ice pack to scrotum while awake (bag of frozen peas works well) OK to shower starting tomorrow Activity:: no lifting over 10 pounds for 1 week Remove Dressings/Wound Care:: 24 hours Shower/Bathe:: 24 hours Diet:: As Tolerated Discharge Orders Discharge Orders: Discharge Order (Routine); Ordered 01/10/22 Ordered By: Momo Topete DS: Diagnosis Discharge Diagnosis (1) Bilateral hydrocele: Status: Acute
--- NOTE | 2022-01-10 14:33 | W.ANESPOSTOP ---
Postoperative Evaluation Date, Time and Location Date Performed: 01/10/22 Time Performed: 13:54 Patient Location: PACU Vital Signs Most Recent Imported Vital Signs: Most Recent Vital Signs Temp Pulse Resp BP Pulse Ox 36.5 C 71 20 104/72 94 01/10/22 14:18 01/10/22 14:18 01/10/22 14:18 01/10/22 14:18 01/10/22 14:18 Pain Score Most Recent Pain Score: Most Recent Pain Score Pain Level 0 01/10/22 14:18 Assessment Mental Status: Awake (Alert & Oriented to Patient Baseline) Airway and Respiratory Function: Patent airway with normal (patient baseline) respiratory exam Cardiovascular Function: Hemodynamically Stable Hydration Status: Adequately Hydrated Nausea & Vomiting: No Nausea or Vomiting Pain: Pt. Denies Any Pain Peripheral Nerve Block: Patient did not receive a nerve block
== END 2022-01-10 15:05 | disposition home or self-care (01) ==
PROVIDERS: PCP Family Medicine; Visit Provider Urology
PROC: (CPT 55500; principal; 2022-01-10 13:00)
DX: N43.2 Other hydrocele (principal); E11.9 Type 2 diabetes mellitus without complications; E66.9 Obesity, unspecified; Z68.41 Body mass index [BMI] 40.0-44.9, adult
CPT/HCPCS: 55500; J0690; J1885; J2405; J2704

== ENCOUNTER 2022-01-30 15:37 | Outpatient (REF) | payer BC, OTHER, SELFPAY | END 2022-01-30 15:38 | disposition home or self-care (01) | LOC: LBN 15:37 | PROVIDERS: PCP Family Medicine; Visit Provider Nurse Practitioner Gerontology | DX: S31.30XA Unspecified open wound of scrotum and testes, initial encounter (principal) | CPT/HCPCS: 87077; 87070; 87205 ==

== ENCOUNTER 2022-10-04 02:21 | Outpatient (CLI) | payer BC, SELFPAY ==
[2022-10-04 12:53] LABS: ALT 27 U/L (16-63); AST 22 U/L (15-37); Albumin 3.6 g/dL (3.4-5.0); Alkaline Phosphatase 33 U/L (46-116); Anion Gap 8.5 mmol/L (3-11); BUN 22 mg/dL (7-18); Bilirubin, Total 0.5 mg/dL (0.2-1.0); CO2 26.5 mmol/L (21.0-32.0); CREATININE 1.1 mg/dL (0.70-1.30); Calcium 9.1 mg/dL (8.5-10.1); Calculated LDL 100 mg/dL (<100); Chloride 104 mmol/L (98-107); Cholesterol 159 mg/dL (<200); Estimated GFR 75.43 (mL/min/1.73m2); Glucose 111 mg/dL (74-106); HDL Cholesterol 40 mg/dL (40-60); Potassium 4.7 mmol/L (3.5-5.1); Sodium 139 mmol/L (136-145); Total Protein 7.2 g/dL (6.4-8.2); Triglyceride 99 mg/dL (<150)
[2022-10-04 12:54] LABS: Hemoglobin A1C 6.2 % (<5.7)
== END 2022-10-04 02:22 | disposition home or self-care (01) ==
LOC: LOS 02:21
PROVIDERS: PCP Family Medicine; Visit Provider Family Medicine
DX: E11.9 Type 2 diabetes mellitus without complications (principal); I10 Essential (primary) hypertension; E78.5 Hyperlipidemia, unspecified; E66.01 Morbid (severe) obesity due to excess calories
CPT/HCPCS: 36415; 80053; 80061; 83036

== ENCOUNTER → 2022-10-16 10:44 | Outpatient (CLI) | payer BC, SELFPAY ==
--- NOTE | 2022-10-16 09:00 | DI.RAD_ITS ---
Exam(s) XR WRIST LT COMPLETE EXAM: XR WRIST LT COMPLETE CLINICAL HISTORY: Left CMC joint pain, Chronic lt wrist pain, M25.532, G89.29. TECHNIQUE: 2D digital imaging was performed. Three views. COMPARISON: No exams were available for comparison FINDINGS: BONES: No acute fracture is present. No bony destructive lesion is seen. JOINTS: The carpal bones are normally aligned. Joint space narrowing and prominent spurring at the 1s t carpal metacarpal joint. There is some lateral subluxation of the base of the 1st metacarpal. SOFT TISSUE: Normal. IMPRESSION: Degenerative changes of the 1st carpal metacarpal joint. DATA REPOSITORY: RADIATION DOSE DELIVERED:
== END ==
PROVIDERS: PCP Family Medicine; Visit Provider Family Medicine
DX: M18.12 Unilateral primary osteoarthritis of first carpometacarpal joint, left hand (principal)
CPT/HCPCS: 73110

== ENCOUNTER 2023-04-11 07:48 | Outpatient (CLI) | payer BC, SELFPAY ==
[2023-04-11 12:37] LABS: ALT 31 U/L (16-63); AST 14 U/L (15-37); Albumin 4.1 g/dL (3.4-5.0); Alkaline Phosphatase 32 U/L (46-116); BUN 17 mg/dL (7-18); Bilirubin, Total 1.1 mg/dL (0.2-1.0); Calcium 9.6 mg/dL (8.5-10.1); Calculated LDL 124 mg/dL (<100); Chloride 102 mmol/L (98-107); Cholesterol 194 mg/dL (<200); Estimated GFR 84.57 (mL/min/1.73m2); Glucose 113 mg/dL (74-106); HDL Cholesterol 47 mg/dL (40-60); Potassium 3.7 mmol/L (3.5-5.1); Sodium 140 mmol/L (136-145); Total Protein 7.8 g/dL (6.4-8.2); Triglyceride 115 mg/dL (<150)
[2023-04-11 12:48] LABS: COMMENT (LAB VIEW ONLY) 50.78 mg/dL; Microalb ug/mg Crea 8.9 ug/mg Cr
== END 2023-04-11 07:49 | disposition home or self-care (01) ==
LOC: LOS 07:48
PROVIDERS: PCP Family Medicine; Referring Provider Family Medicine; Visit Provider Family Medicine
DX: E11.40 Type 2 diabetes mellitus with diabetic neuropathy, unspecified
CPT/HCPCS: 36415; 80053; 80061; 82043; 82570

== ENCOUNTER 2024-06-03 03:37 | Outpatient (CLI) | payer MEDICARE, SELFPAY ==
[2024-06-03 13:06] LABS: COMMENT (LAB VIEW ONLY) 123.84 mg/dL; Microalb ug/mg Crea 7.9 ug/mg Cr
[2024-06-03 13:10] LABS: ALT 45 U/L (16-63); AST 20 U/L (15-37); Albumin 3.9 g/dL (3.4-5.0); Alkaline Phosphatase 36 U/L (46-116); BUN 16 mg/dL (7-18); Bilirubin, Total 0.6 mg/dL (0.2-1.0); Calculated LDL 79 mg/dL (<100); Chloride 104 mmol/L (98-107); Cholesterol 154 mg/dL (<200); Estimated GFR 83.52 (mL/min/1.73m2); Glucose 116 mg/dL (74-106); HDL Cholesterol 45 mg/dL (>or=40); Potassium 3.9 mmol/L (3.5-5.1); Sodium 140 mmol/L (136-145); Total Protein 7.4 g/dL (6.4-8.2); Triglyceride 154 mg/dL (<150)
== END 2024-06-03 03:38 | disposition home or self-care (01) ==
LOC: LOS 03:37
PROVIDERS: PCP Family Medicine; Visit Provider Family Medicine
DX: E11.40 Type 2 diabetes mellitus with diabetic neuropathy, unspecified
CPT/HCPCS: 36415; 80053; 80061; 82043; 82570

== ENCOUNTER 2024-10-25 04:47 | Outpatient (CLI) | payer MEDICARE, OTHER, SELFPAY ==
[2024-10-25 13:14] LABS: ALT 54 U/L (16-63); AST 18 U/L (15-37); Albumin 4.1 g/dL (3.4-5.0); Alkaline Phosphatase 37 U/L (46-116); Anion Gap 10.7 mmol/L (3-11); BUN 14 mg/dL (7-18); Bilirubin, Total 0.8 mg/dL (0.2-1.0); CO2 24.3 mmol/L (21.0-32.0); Calcium 9.2 mg/dL (8.5-10.1); Calculated LDL 92 mg/dL (<100); Chloride 100 mmol/L (98-107); Cholesterol 162 mg/dL (<200); Estimated GFR 83.52 (mL/min/1.73m2); Glucose 106 mg/dL (74-106); HDL Cholesterol 47 mg/dL (>or=40); Potassium 3.9 mmol/L (3.5-5.1); Sodium 135 mmol/L (136-145); Total Protein 7.8 g/dL (6.4-8.2); Triglyceride 116 mg/dL (<150)
[2024-10-25 13:21] LABS: COMMENT (LAB VIEW ONLY) 151.30 mg/dL; Microalb ug/mg Crea 54.0 ug/mg Cr
[2024-10-25 13:37] LABS: Hemoglobin A1C 5.8 % (<5.7)
[2024-10-25 18:04] LABS: PSA, Screening 2.4 ng/mL (<=4.5)
== END 2024-10-25 04:48 | disposition home or self-care (01) ==
LOC: LOS 04:47
PROVIDERS: PCP Family Medicine; Visit Provider Family Medicine
DX: Z12.5 Encounter for screening for malignant neoplasm of prostate (principal); E11.9 Type 2 diabetes mellitus without complications; E11.40 Type 2 diabetes mellitus with diabetic neuropathy, unspecified
CPT/HCPCS: 36415; 80053; 80061; 84153; 82043; 82570; 83036

== ENCOUNTER → 2024-12-06 08:16 | Outpatient (BNVA) | payer MEDICARE, OTHER, SELFPAY | PROVIDERS: PCP Family Medicine; Referring Provider Family Medicine; Visit Provider Student in an Organized Health Care Education/Training Program | DX: Z12.11 Encounter for screening for malignant neoplasm of colon (principal); Z86.0109 Personal history of other colon polyps | CPT/HCPCS: S0285 ==

== ENCOUNTER 2024-12-22 06:44 | Day surgery (SDC) | payer MEDICARE, OTHER, SELFPAY ==
--- NOTE | 2024-12-21 18:29 | W.ANESPRE ---
General Info Date of Service Date Performed: 12/22/24 Height: 5 ft 5.75 in Weight: 113.115 kg Body Mass Index (BMI): 40.5 Surgical Procedure: Operation Date: 12/22/24 08:20 Proposed Procedure Side Surgeon p Colonoscopy Babita Isabel MD Meds Allergies and Home Medications Allergies Allergy/AdvReac Type Severity Reaction Status Date / Time No Known Allergies Allergy Verified 12/22/24 07:01 Home Medication ?Medication ?Instructions ?Recorded aspirin 81 mg tablet,delayed 81 mg PO DAILY 01/03/23 release gemfibrozil 600 mg tablet 600 mg PO DAILY #90 tabs 06/15/24 hydrochlorothiazide 25 mg tablet 25 mg PO DAILY #90 tabs 09/27/24 tirzepatide 15 mg/0.5 mL 15 mg (0.5 mL) subcut QWEEK #2 mL 10/04/24 subcutaneous pen injector lisinopril 20 mg tablet 20 mg PO DAILY #90 tabs 11/02/24 bisacodyl 5 mg tablet,delayed 5 mg PO ONCE Colonoscopy Bowel 12/20/24 release Prep #4 tabs polyethylene glycol 3350 17 238 g PO ONCE #238 grams 12/20/24 gram/dose oral powder Current Visit Medications: Current Medications Generic Name Dose Route Start Last Admin Trade Name Freq PRN Reason Stop Dose Admin Ringer's Solution 1,000 mls @ 80 mls/hr 12/22/24 06:00 IV 12/22/24 23:59 INFUSION CHRIS IV Miscellaneous Supplies 1 each 12/22/24 06:00 Iv Access IV 12/22/24 23:59 DIRECTED CHRIS Sodium Chloride 0 ml 12/22/24 06:00 Normal Saline Flush 10 Ml Syr IV 12/22/24 23:59 PRN PRN Sodium Chloride 0 ml 12/22/24 06:00 Normal Saline 10 Ml Vial IJ 12/22/24 23:59 DIRECTED PRN Sterile Water 0 ml 12/22/24 06:00 Water,Injection,Sterile 10 Ml Vial IJ 12/22/24 23:59 DIRECTED PRN PFSH Active Problems Active Problems: Problem Status Onset Code Arthritis of carpometacarpal (CMC) joint of left thumb Acute M18.12 Type 2 diabetes mellitus with diabetic neuropathy, without long-term current use of insulin Chronic E11.40 Morbid obesity with BMI of 40.0-44.9, adult Chronic E66.01, Z68.41 Colon polyp Acute K63.5 Hyperlipidemia Acute E78.5 Hypertension Chronic I10 Medical History Medical History COVID 12/19/21 Bilateral hydrocele Surgical History Surgical History S/P repair of hydrocele Hx of hand surgery left, chainsaw trauma History of appendectomy Status post unilateral inguinal hernia repair Colonoscopy - [facility] 01/19. Tubular adenoma. 03/10 Tobacco Smoking/Tobacco Use Status: Never Passive smoking exposure: No Second hand exposure: Yes Alcohol Alcohol Intake: current Alcohol intake frequency: a few times a week Alcohol type: beer Details: 3-4 drinks on typical day, 6 or more drinks monthly Substance Use Substance use: Never Substance use type: does not use Vital Signs and Lab Results Vital Signs Most Recent Vital Signs in EMR: Temp Pulse Resp BP Pulse Ox 36.4 C L 75 16 170/87 H 95 12/22/24 07:05 12/22/24 07:05 12/22/24 07:05 12/22/24 07:05 12/22/24 07:05 Anesthesia Assessment and Plan Anesthesia History Personal History: No History of Anesthesia Complications Family History: No Family History of Anesthesia Complications Exercise Tolerance Exercise Tolerance: Metabolic Equivalents>4 Cardiac & Pulmonary Exam Cardiac Exam: Normal S1/S2 Heart Sounds Pulmonary Exam: Clear Bilateral Breath Sounds Cardiac and Pulmonary Comment:: COVID mid December, never had cough Implantable Cardiac Device Does patient have a Pacemaker or an ICD?: No Airway Exam Known Difficult Airway: No Mallampati Class: 2 Mouth Opening: Normal (> 3cm) Thyromental Distance: Greater than 3 cm Neck Range of Motion: Full ROM Neck Circumference: Thick Teeth Condition: Normal Dentition ASA Classification ASA Score: ASA 3 Emergency Case?: No NPO Status NPO Status: NPO Clears >2 hours, Solids >8 hours Anesthesia Plan Resuscitation Status: Full Code Anesthesia Technique: General Anesthesia Airway Planned: Natural Airway Monitors Used: Standard Monitors Preoperative Comments:: 64 yo for colo. Sig PMHx: HTN (Lisinopril, HCTZ), DM2 (tirzepatide), elevated BMI. Never smoker, occ EtOH. Previous Anes: - hydrocelectomy, LMA, prop, no issues. - colo, prop, natural airway, no issues.
[2024-12-22 07:05] VITALS: BP 170/87; PULSE 75; RESP 16; TEMP 36.4; O2SAT 95
[2024-12-22] MEDS: Lactated Ringers 1,000 ML 80 ML IV (07:17)
[2024-12-22 07:22] VITALS: BMI 40.5
--- NOTE | 2024-12-22 08:00 | BOWEL_PTH ---
PATIENT: Christiano Mosquera LOC: [facility] U#:[id number] AGE/SX: 64/M ROOM: RE12/22/[address]: Babita Isabel : 1960 BED: DIS: 12/22/2024 SPEC #: [id number] RECD: 12/22/24 12:38 STATUS: AISSATOU REQ #: [id number] PAO: 12/22/24 08:[address]: Babita Isabel DEPT: Surgical Specimen RECD BY: Carmen Ackerman ENTERED: 12/22/24 12:39 SP TYPE: Bowel OTHR DR: Maria Isabel Gomez Tissues: 1 - BIOPSY BOWEL Procedures: GROSS AND MICRO LEVEL 4 Comments: [id number]
[2024-12-22 08:06] VITALS: BP 124/79; PULSE 78; RESP 16; TEMP 36.5; O2SAT 95
--- NOTE | 2024-12-22 08:09 | W.PM.DSUDISC ---
Date of service: 12/22/24 Discharge Plan Disposition Patient Disposition: Home Discharge Details Reason For Visit: History of colon polyps Attending Provider: Babita Isabel Primary Care Provider: Maria Isabel Gomez Recommendations for Follow Up Recommended tests to be ordered by follow up provider: Follow up pathology Home Meds and New Rx's Prescriptions: Continued aspirin 81 mg tablet,delayed release (DR/EC) 81 mg PO DAILY gemfibrozil 600 mg tablet 600 mg PO DAILY Qty: 90 4RF hydrochlorothiazide 25 mg tablet 25 mg PO DAILY Qty: 90 3RF tirzepatide 15 mg/0.5 mL pen injector 15 mg subcut QWEEK Qty: 2 5RF Rx Instructions: for 4 weeks lisinopril 20 mg tablet 20 mg PO DAILY Qty: 90 3RF Discontinued bisacodyl 5 mg tablet,delayed release (DR/EC) 5 mg PO ONCE Qty: 4 0RF Rx Instructions: Per Colonoscopy bowel prep instructions polyethylene glycol 3350 17 gram/dose powder 238 g PO ONCE Qty: 238 0RF Rx Instructions: For Colonoscopy bowel prep, as directed by office Discharge Instructions Instructions: Colon polyps, Diverticulosis (DC) Additional Instructions: Your colonoscopy went well today. He did have evidence of diverticulosis or small outpouchings from the colon. He also had 1 polyp which was removed. This polyp will be sent to pathology and when these results return we will contact you for when to have your next colonoscopy performed. Please contact the general surgery office if you have further questions or concerns. 1. If tolerated, consume a soft, low fiber diet for 1-2 days. 2[address] Do not drive, drink alcohol, operate machinery, make critical decisions, or do activities that require coordination or balance for 24 hours. 3. Because air was put into your colon during the procedure, expelling air from your rectum (passing gas or farting) is normal. 4. You may not have a bowel movement for 1-3 days because of the colonoscopy prep. This is normal. 5. Go directly to the emergency room if you notice any of the following: Develop chills (warm to touch), or if you have a thermometer and your temperature is above 101 Difficulty breathing or difficultly swallowing Persistent vomiting Severe abdominal pain, other than gas cramps Severe chest pain Black, tarry stools Any bleeding ? exceeding one tablespoon 6. Call your physician if the site where your intravenous was started becomes red, swollen, painful, and warm to touch. 7. Your physician has reviewed your pre-procedure medications. Please continue to take those medications as previously ordered. You will be given specific information/education regarding any changes to your medications before leaving. Stand Alone Forms: Anesthesia Discharge InstМарина Burk (DSU) Activity:: Activity as Tolerated Diet:: As Tolerated Discharge Orders Discharge Orders: Discharge Order (Routine); Ordered 12/22/24 Ordered By: Babita Isabel
--- NOTE | 2024-12-22 08:12 | W.COLOREPORT ---
Date of service: 12/22/24 Time of Service: 08:12 Colonoscopy Report Date of procedure: 12/22/24 Pre-op diagnosis general: History of colon polyps Post-op diagnosis procedure note: same Procedure: Colonoscopy with polypectomy Surgeon: Babita Isabel Anesthesia Type: General:No Airway Estimated blood loss (mL): 1 Pathology: other (Rectal polyp) Complications: None Disposition: PACU Indications: Patient is a 64-year-old male who presents for a repeat colonoscopy given personal history of polyps. Prep: Miralax/Dulcolax Procedure Start Time: 07:47 Procedure End Time: 08:03 Retraction Time: 11 Findings: Evidence of pandiverticulosis. One rectal polyp identified and removed with cold forceps. Procedure Description: The patient was brought to the endoscopy suite and placed in the left lateral decubitus position. After induction of IV sedation, a digital rectal exam was performed. Digital exam was normal. There was evidence of perianal skin tags. The colonoscope was then passed to the cecum without difficulty. Cecal intubation was confirmed by the identification of the appendiceal orifice and the ileocecal valve. Upon withdrawing the colonoscope, all mucosal surfaces were inspected. The prep was noted to be adequate. In the rectum, there was a small polyp, which was removed using cold forceps in its entirety. Specimen was retrieved for pathological analysis. There was no other evidence of mucosal abnormality, polyp or cancer. There was evidence of pandiverticulosis which was more significant in the rectosigmoid colon. Retroflexion in the rectum was unremarkable.The patient tolerated the procedure well with no complications. Postoperatively, the patient was transferred to the recovery room in stable condition. [place] Bowel Prep [place] Bowel Prep Right Colon: 3 Left Colon: 3 Transverse Colon: 3 Total Score: 9
--- NOTE | 2024-12-22 08:18 | W.ANESPOSTOP ---
Postoperative Evaluation Date, Time and Location Date Performed: 12/22/24 Time Performed: 08:19 Patient Location: Day Surgery Unit Vital Signs Most Recent Imported Vital Signs: Most Recent Vital Signs Temp Pulse Resp BP Pulse Ox 36.5 C 78 16 124/79 95 12/22/24 08:06 12/22/24 08:06 12/22/24 08:06 12/22/24 08:06 12/22/24 08:06 Pain Score Most Recent Pain Score: Most Recent Pain Score Pain Level 0 12/22/24 08:06 Assessment Mental Status: Awake (Alert & Oriented to Patient Baseline) Airway and Respiratory Function: Patent airway with normal (patient baseline) respiratory exam Cardiovascular Function: Hemodynamically Stable Hydration Status: Adequately Hydrated Nausea & Vomiting: No Nausea or Vomiting Pain: Pt. Denies Any Pain Peripheral Nerve Block: Patient did not receive a nerve block
[2024-12-22 08:27] VITALS: BP 142/85; PULSE 69; RESP 16; TEMP 36.3; O2SAT 96
== END 2024-12-22 08:37 | disposition home or self-care (01) ==
PROVIDERS: PCP Family Medicine; Visit Provider Student in an Organized Health Care Education/Training Program
PROC: 0DJD8ZZ Inspection of Lower Intestinal Tract, Via Natural or Artificial Opening Endoscopic (ICD-10-PCS; CPT 45378; principal; 2024-12-22 08:15)
DX: Z12.11 Encounter for screening for malignant neoplasm of colon (principal); E11.9 Type 2 diabetes mellitus without complications; I10 Essential (primary) hypertension; K62.1 Rectal polyp
CPT/HCPCS: 45380; 88305; J2704